=== PATIENT | male | born 1960 | race Caucasian/White ===

== ENCOUNTER 2022-08-04 10:32 | Outpatient (CLI) | payer OTHER, SELFPAY | END 2022-08-04 10:33 | disposition home or self-care (01) | PROVIDERS: PCP Family Medicine; Visit Provider Family Medicine | DX: M54.16 Radiculopathy, lumbar region (principal); M51.26 Other intervertebral disc displacement, lumbar region; M48.062 Spinal stenosis, lumbar region with neurogenic claudication | CPT/HCPCS: 64483; J1100; Q9966 ==

== ENCOUNTER 2022-09-15 09:49 | Outpatient (CLI) | payer OTHER, SELFPAY | END 2022-09-15 09:50 | disposition home or self-care (01) | LOC: INJ CL 09:49 | PROVIDERS: PCP Family Medicine; Visit Provider Family Medicine | DX: M54.16 Radiculopathy, lumbar region (principal); M51.36 Other intervertebral disc degeneration, lumbar region | CPT/HCPCS: 64483; J0702; Q9966 ==

== ENCOUNTER 2023-01-15 09:29 | Outpatient (CLI) | payer OTHER, SELFPAY | END 2023-01-15 09:30 | disposition home or self-care (01) | LOC: INJ CL 09:30 | PROVIDERS: PCP Family Medicine; Visit Provider Family Medicine | DX: M54.16 Radiculopathy, lumbar region (principal); M48.062 Spinal stenosis, lumbar region with neurogenic claudication | CPT/HCPCS: 64483; J1100; Q9966 ==

== ENCOUNTER 2023-02-26 08:23 | Outpatient (CLI) | payer OTHER, SELFPAY | END 2023-02-26 08:24 | disposition home or self-care (01) | LOC: INJ CL 08:24 | PROVIDERS: PCP Family Medicine; Visit Provider Family Medicine | DX: M54.16 Radiculopathy, lumbar region (principal) | CPT/HCPCS: 64483; J1100; Q9966 ==

== ENCOUNTER 2024-07-21 10:09 | Outpatient (CLI) | payer OTHER, SELFPAY | END 2024-07-21 10:10 | disposition home or self-care (01) | PROVIDERS: PCP Family Medicine; Visit Provider Family Medicine | DX: M51.26 Other intervertebral disc displacement, lumbar region (principal); M54.16 Radiculopathy, lumbar region | CPT/HCPCS: 64483; J1100; Q9966 ==

== ENCOUNTER 2024-09-14 10:46 | Outpatient (RCR) | payer BC, SELFPAY | END 2025-01-12 23:59 | disposition home or self-care (01) | PROVIDERS: PCP Family Medicine; Visit Provider Family Medicine | DX: M54.16 Radiculopathy, lumbar region (principal); M48.062 Spinal stenosis, lumbar region with neurogenic claudication; M51.26 Other intervertebral disc displacement, lumbar region; Z98.890 Other specified postprocedural states; R53.1 Weakness; Z51.89 Encounter for other specified aftercare | CPT/HCPCS: 97110; 97161 ==

== ENCOUNTER 2024-10-13 09:34 | Outpatient (CLI) | payer BC, SELFPAY | END 2024-10-13 09:35 | disposition home or self-care (01) | LOC: INJ CL 09:35 | PROVIDERS: PCP Family Medicine; Visit Provider Family Medicine | DX: M54.16 Radiculopathy, lumbar region (principal); M51.26 Other intervertebral disc displacement, lumbar region | CPT/HCPCS: 64483; J1100; Q9966 ==

== ENCOUNTER 2024-12-12 10:02 | Outpatient (CLI) | payer BC, SELFPAY | END 2024-12-12 10:03 | disposition home or self-care (01) | LOC: INJ CL 10:03 | PROVIDERS: PCP Family Medicine; Visit Provider Family Medicine | DX: M54.16 Radiculopathy, lumbar region (principal); M48.062 Spinal stenosis, lumbar region with neurogenic claudication | CPT/HCPCS: 64483; J1100; Q9966 ==

== ENCOUNTER 2025-05-08 09:13 | Outpatient (CLI) | payer BC, SELFPAY | END 2025-05-08 09:14 | disposition home or self-care (01) | LOC: INJ CL 09:14 | PROVIDERS: PCP Family Medicine; Visit Provider Family Medicine | DX: M48.062 Spinal stenosis, lumbar region with neurogenic claudication (principal); M54.16 Radiculopathy, lumbar region | CPT/HCPCS: 64483; J1100; Q9966 ==